=== PATIENT | female | born 1995 | race Caucasian/White ===

== ENCOUNTER → 2018-04-28 | Outpatient (REF) ==
[~2018-04-28] MED LIST: ALBUTEROL2.5 MG/31 IN; ALLEGRA-D 1212 HOUR PO; AMOXICILLIN875 MG PO; AUGMENTIN875TAB OR; CIPROFLOXACN500 MG PO; FLONASE NASAL50 MCG; FLOVENT HFA220 MCG IN; FLUTICASONE50 MCG; GARDASIL IM; HAVRIX720 UNI1 IM; LOESTRIN 24 PO; MEDDOSEPAK OR; MEDDOSEPAK PO; MENACTRA IM; METRONIDAZOL500 MG PO; NEXIUM20 MG PO; OMEPRAZOLE40 MG PO; PHENERGAN25 MG/TAB PO; PREDNISONE20 MG PO; PRENATAL1 TA1 PO; PROMETHAZINE25 M1 RE; RANITIDINE150 M1 OR; RANITIDINE150 M1 PO; SINGULAIR10 MG OR; TRI PREVIFEM; VENTOLIN HFA IN; ZOFRAN ODT4 MG PO; ZOFRAN4 MG/TAB PO; ZOLOFT50 MG PO; ZYRTEC-D AL1 PO; ZYRTEC5 MG OR; [UNRECOGNIZED DRUG - OTHER] PO
== END | disposition home or self-care (01) | DRG 690 ==
LOC: LAB 12:40
PROVIDERS: ATTEND Nurse Practitioner
DX: N39.0 Urinary tract infection, site not specified (principal); R53.83 Other fatigue; Z13.6 Encounter for screening for cardiovascular disorders